=== PATIENT | female | born 1965 | race Caucasian/White ===

== ENCOUNTER → 2018-10-22 | Outpatient (CLI) | payer BC ==
[~2018-10-22] MED LIST: ACETAMINOPHEN650 MG PO; IBUPROFEN600 MG PO
--- NOTE | 2018-10-22 10:00 | Diagnostic Imaging Report ---
MRI of the right ankle without contrast. History: Fall. Ankle pain. Sprain. Technique: Utilizing a high-field 1.5T magnet, the following sequences were acquired: PD FS in all 3 planes with additional axial PD. Comparison: None. Findings: Achilles tendon and plantar fascia: The Achilles tendon and plantar fascia are normal. Minimal retrocalcaneal bursal fluid. Cartilage and bone: Negative for osteochondral lesion of the tibiotalar and subtalar joints. Negative for fracture, osteonecrosis, or dislocation. Mild scattered degenerative changes most pronounced at the medial talar dome. Medial ankle: The deltoid ligament complex is intact. The medial flexor tendons are normal. There is a physiologic amount of fluid within the tendon sheath of FHL. Lateral ankle: Sprain/partial tear of the anterior talofibular and calcaneofibular ligaments. The posterior talofibular ligament are intact. Small effusion and mild synovitis in the anterolateral gutter. The syndesmotic ligaments are intact. The peroneal tendons are normal. Anterior ankle: The anterior extensor tendons are normal. Other findings: Small tibiotalar joint effusion and mild synovitis. Impression: Sprain/partial tear of the anterior talofibular and calcaneofibular ligaments. The posterior talofibular ligament are intact. Small effusion and mild synovitis in the anterolateral gutter. Signed by: Dr. Ricky Dudley M.D. on 10/22/2018 9:56 AM
== END ==
LOC: MRI 08:17
PROVIDERS: ATTEND Family Medicine
DX: S93.401A Sprain of unspecified ligament of right ankle, initial encounter (principal)

== ENCOUNTER → 2018-11-29 | Day surgery (SDC) | payer BC ==
[~2018-11-29] MED LIST changes: +ACETAMINOPHEN 1000 MG/100 ML IV ONE; +BUPIVACAINE HCL 0.5% 10ML MPF VIAL INJ ONE; +CEFAZOLIN SOD 1 GM/NS 50ML 50 ML IV ONE; +DEXAMETHASONE SOD PHOS INJ 4 MG/ML VIAL ONE; +FENTANYL CITRATE/PF 100MCG/2 ML INJ ONE; +KETOROLAC TROMETHAMINE 30 MG/ML VIAL ONE; +LIDOCAINE HCL 2% LOCAL INJ 5 ML SDV VIAL INJ ONE; +MIDAZOLAM HCL 2 MG/2 ML VIAL ONE; +ONDANSETRON HCL INJ 2MG/ML 2ML 2 MG/ML VIAL ONE; +PROPOFOL IV EMULSION 10 MG/ML 20 ML VIAL ONE; +SEVOFLURANE INHAL SOLN 250 ML PEN BTL ONE
--- OUTSIDE RECORDS SUMMARY | 2018-11-29 05:22 | XMS REPORT ---
Author Author [facility] Address Unknown Phone Unavailable Care Team Providers Care Ethanol Quality Leader Name Role Phone ABENA GUNDERSON Unavailable Unavailable Problems This patient has no known problems. Allergies, Adverse Reactions, Alerts This patient has no known allergies or adverse reactions. Medications This patient has no known medications. Results Test Description Test Time Test Comments Text Results Atomic Results Result Comments MRI ANKLE RIGHT WO 2018-10-22 09:53:00 [place] [address] Patient Name: TANMAY SILVA MR #: [id number] : 1965 Age/Sex: 52/F Req #: [id number] Adm Physician: Ordered by: ABENA GUNDERSON DO Report #: [id number] Location: MRI Room/Bed: Procedure: [id number] MRI/MRI ANKLE RIGHT WO Exam Date: Exam Time: REPORT STATUS: Signed MRI of the right ankle without contrast. History: Fall. Ankle pain. Sprain. Technique: Utilizing a high-field 1.5T magnet, the following sequences were acquired: PD FS in all 3 planes with additional axial PD. Comparison: None. Findings: Achilles tendon and plantar fascia: The Achilles tendon and plantar fascia are normal. Minimal retrocalcaneal bursal fluid. Cartilage and bone: Negative for osteochondral lesion of the tibiotalar and subtalar joints. Negative for fracture, osteonecrosis, or dislocation. Mild scattered degenerative changes most pronounced at the medial talar dome. Medial ankle: The deltoid ligament complex is intact. The medial flexor tendons are normal. There is a physiologic amount of fluid within the tendon sheath of FHL. Lateral ankle: Sprain/partial tear of the anterior talofibular and calcaneofibular ligaments. The posterior talofibular ligament are intact. Small effusion and mild synovitis in the anterolateral gutter. The syndesmotic ligaments are intact. The peroneal tendons are normal. Anterior ankle: The anterior extensor tendons are normal. Other findings: Small tibiotalar joint effusion and mild synovitis. Impression: Sprain/partial tear of the anterior talofibular and calcaneofibular ligaments. The posterior talofibular ligament are intact. Small effusion and mild synovitis in the anterolateral gutter. Signed by: Dr. Ricky Dudley M.D. on 10/22/2018 9:56 AM Dictated By: RICKY DUDLEY MD, MD Transcribed By: YAIR on 10/22/18955 COPY TO: ABENA GUNDERSON DO
[2018-11-29 08:25] VITALS: BP 107/73
--- NOTE | 2018-12-02 15:58 | Operative Report ---
DATE OF PROCEDURE: 11/29/2018 SURGEON: Car Laguna DPM ([place]) PREOPERATIVE DIAGNOSIS: Rupture of lateral ankle ligaments. POSTOPERATIVE DIAGNOSIS: Rupture of lateral ankle ligaments. OPERATIVE PROCEDURE: Delayed primary repair of lateral ankle ligament. DESCRIPTION OF PROCEDURE: The patient was placed on the OR table in the supine position. The right lower extremity was prepped and draped in the usual manner. A general anesthetic was administered and hemostasis accomplished using a pneumatic cuff set at 350 mmHg at thigh level. A curvilinear incision was made on the anterior and extending around the plantar aspect of the lateral malleolus. The incision was deepened. Blood vessels were either ligated or retracted. The capsule was then noted and was opened with sharp incision, the capsule and the ligaments were then partially dissected away from the distal aspect of the lateral malleolus. At this time, the Mitek anchor was inserted. Using the two sutures attached to the Mitek anchor, the capsule and the ligament were repaired. Further repair was done with 2-0 Vicryl. Subcutaneous tissue was closed with 3-0 Vicryl and the skin was closed with 4-0 nylon. Following the procedure, 14 mL of 0.5 Marcaine and 1 mL of Decadron were injected. A sterile compression dressing consisting of a posterior splint was applied. At this time, the pneumatic cuff was released and a reflex hyperemia was observed to all digits. The patient tolerated the procedures and anesthesia well, and left the OR to recovery in good condition with vital signs stable. Car Laguna DPM ([place]) /MODL /[id number]
== END | disposition home or self-care (01) ==
LOC: OR 05:00
PROVIDERS: ATTEND Podiatrist Foot & Ankle Surgery
DX: S93.491A Sprain of other ligament of right ankle, initial encounter (principal); X58.XXXA Exposure to other specified factors, initial encounter; Z01.810 Encounter for preprocedural cardiovascular examination
CPT/HCPCS: 27695; 93005; C1713; J0131; J0690; J1100; J1885; J2001; J2250; J2405; J2704; J3010